=== PATIENT | male | born 1990 | race Caucasian/White ===

== ENCOUNTER 2018-11-03 17:07 | Emergency (ER) | payer OTHER ==
[2018-11-03] MEDS ORDERED: Ketorolac 60 MG/2 ML SDV IM ONE (17:47)
--- NOTE | 2018-11-03 17:49 | EDM.PDOC ---
ED HPI GENERAL MEDICAL PROBLEM - General Chief Complaint: Back Pain or Injury Stated Complaint: BACK PAIN Time Seen by Provider: 11/03/18 17:36 Source of Information: Reports: Patient History Limitations: Reports: No Limitations - History of Present Illness INITIAL COMMENTS - FREE TEXT/NARRATIVE: History of present illness: []Patient was diagnosed with pneumomediastinum over the and states he's been taking oxycodone which he has run out of. Upper back pain that is similar to when he was diagnosed with a pneumomediastinum. He denies Any shortness of breath, fevers, chills or cough. Review of systems: As per history of present illness and below otherwise all systems reviewed and negative. Past medical history: As per history of present illness and as reviewed below otherwise noncontributory. Surgical history: As per history of present illness and as reviewed below otherwise noncontributory. Social history: No reported history of drug or alcohol abuse. Family history: As per history of present illness and as reviewed below otherwise noncontributory. Physical exam: General: Well developed, well nourished in NAD HEENT: Atraumatic, normocephalic, pupils reactive, negative for conjunctival pallor or scleral icterus, mucous membranes moist, throat clear, neck supple, nontender, trachea midline. Lungs: Clear to auscultation, breath sounds equal bilaterally, chest nontender. Heart: S1S2, regular, negative for clicks, rubs, or JVD. Abdomen: NABS, Soft, nondistended, nontender. Negative for masses or hepatosplenomegaly. Negative for costovertebral tenderness. Pelvis: Stable nontender. Genitourinary: Deferred. Rectal: Deferred. Extremities: Atraumatic, negative for cords or calf pain. Neurovascular unremarkable. Neuro: Awake, alert, oriented. Cranial nerves II through XII unremarkable. Cerebellum unremarkable. Motor and sensory unremarkable throughout. Exam nonfocal. Skin:warm and dry Diagnostics: Therapeutics: ED Course: Impression: Prescriptions: Plan: Definitive disposition and diagnosis as appropriate pending reevaluation and review of above. Upper Back Pain Score (Numeric/FACES): 5 - Related Data Allergies Allergy/AdvReac Type Severity Reaction Status Date / Time No Known Allergies Allergy Verified 11/03/18 17:27 Home Meds: Home Meds Diclofenac Sodium [Voltaren] 75 mg PO BIDMEALS PRN #20 tab.cr 11/03/18 [Rx] oxyCODONE HCl [Oxycodone HCl] 10 mg PO Q4HR PRN 11/03/18 [History] Past Medical History Gastrointestinal History: Reports: Pancreatitis, Other (See Below) Other Gastrointestinal History: Ulcerative colitis - Past Surgical History HEENT Surgical History: Reports: Oral Surgery Other HEENT Surgeries/Procedures: wisdom teeth removal and surgery to correct deviated septum. GI Surgical History: Reports: Colon, Other (See Below) Other GI Surgeries/Procedures: J-pouch surgery Social & Family History - Family History Family Medical History: Noncontributory - Tobacco Use Smoking Status *Q: Never Smoker - Recreational Drug Use Recreational Drug Use: No ED ROS GENERAL - Review of Systems Review Of Systems: ROS reveals no pertinent complaints other than HPI. ED EXAM, UPPER BACK/NECK PAIN - Physical Exam Exam: See Below (See history of present illness) Course - Vital Signs Last Recorded V/S: Last Vital Signs Temp 99.1 F 11/03/18 18:39 Pulse 59 L 11/03/18 18:39 Resp 18 11/03/18 17:24 BP 107/69 11/03/18 18:39 Pulse Ox 100 11/03/18 18:39 - Orders/Labs/Meds Orders: Active Orders 24 hr Category Date Time Status Chest 2V [CR] Stat Exams 11/03/18 17:47 Taken Meds: Medications Discontinued Medications Generic Name Dose Route Start Last Admin Trade Name Freq PRN Reason Stop Dose Admin Ketorolac Tromethamine 60 mg 11/03/18 17:47 11/03/18 17:52 Toradol IM 11/03/18 17:48 60 mg ONETIME ONE Administration Departure - Departure Time of Disposition: 18:41 Disposition: Home, Self-Care 01 Condition: Good Clinical Impression: Pneumomediastinum - Discharge Information *PRESCRIPTION DRUG MONITORING PROGRAM REVIEWED*: No *COPY OF PRESCRIPTION DRUG MONITORING REPORT IN PATIENT WALE: No Prescriptions: Diclofenac Sodium [Voltaren] 75 mg PO BIDMEALS PRN #20 tab.cr PRN Reason: Pain Referrals: PCP,None [Primary Care Provider] - Forms: ED Department Discharge Additional Instructions: The following information is given to patients seen in the emergency department who are being discharged to home. This information is to outline your options for follow-up care. We provide all patients seen in our emergency department with a follow-up referral. The need for follow-up, as well as the timing and circumstances, are variable depending upon the specifics of your emergency department visit. If you don't have a primary care physician on staff, we will provide you with a referral. We always advise you to contact your personal physician following an emergency department visit to inform them of the circumstance of the visit and for follow-up with them and/or the need for any referrals to a consulting specialist. The emergency department will also refer you to a specialist when appropriate. This referral assures that you have the opportunity for follow-up care with a specialist. All of these measure are taken in an effort to provide you with optimal care, which includes your follow-up. Under all circumstances we always encourage you to contact your private physician who remains a resource for coordinating your care. When calling for follow-up care, please make the office aware that this follow-up is from your recent emergency room visit. If for any reason you are refused follow-up, please contact the [facility] Emergency Department at and asked to speak to the emergency department charge nurse. Call radiology tomorrow to schedule your CT scan of her chest without contrast. Turn HELLEN symptoms worsen or change. For follow-up with primary care. [facility] [address] [place] [id number] - My Orders Last 24 Hours: My Active Orders 11/03/18 17:47 Chest 2V [CR] Stat - Assessment/Plan Last 24 Hours: My Active Orders 11/03/18 17:47 Chest 2V [CR] Stat
[2018-11-03 23:47] VITALS: BP 107/62
--- NOTE | 2018-11-04 18:47 | CR ---
EXAM DATE: 11/03/18 PATIENT'S AGE: 28 Patient: ANGELA LAZCANO Facility: [place], [place] Site . Site : 1990 Study: XRay Chest [id number]/10/2019 6:12:03 PM Ordering Physician: Gurvinder Wilburn Final Report: INDICATION: Pain shortness of breath TECHNIQUE: Two view chest. FINDINGS: The lungs are clear. The heart, mediastinum and pulmonary vessels are of normal size. There is no evidence of pleural disease. IMPRESSION: Negative chest. Dictated by Rosie Eng MD @ Nov 03 2018 6:43PM (Electronic Signature) Report Signed by Proxy. [email or web address]
== END 2018-11-03 19:09 | disposition home or self-care (01) ==
LOC: MW.ED 17:07
DX: J98.2 Interstitial emphysema (principal)
CPT/HCPCS: 71046; 96372; 99283; J1885